=== PATIENT | male | born 1940 | race Caucasian/White ===

== ENCOUNTER → 2016-08-20 | Outpatient (CLI) | payer MEDICARE, BC ==
[2016-08-20 11:31] LABS: ABSOLUTE BASOPHILS # (AUTO) 0.1 10^3/uL (0.0-0.2); ABSOLUTE EOSINOPHILS # (AUTO) 0.2 10^3/uL (0.0-0.6); ABSOLUTE MONOCYTES (AUTO) 0.8 10^3/uL (0.1-1.4); ABSOLUTE NEUT (AUTO) 7.6 10^3/uL (1.7-8.2); BASOPHILS % (AUTO) 1.2 % (0-2); EOSINOPHILS % (AUTO) 1.9 % (0-6); HEMATOCRIT 43.4 % (37.9-51.0); HEMOGLOBIN 14.1 g/dL (13.5-17.0); HGB HCT DIFFERENCE -1.1; LYMPHOCYTES % (AUTO) 18.4 % (13-45); MEAN CORPUSCULAR HEMOGLOBIN 29.9 pg (27.0-33.4); MEAN CORPUSCULAR HGB CONC 32.4 g/dL (32.0-36.0); MEAN CORPUSCULAR VOLUME 92 fl (80-97); MONOCYTES % (AUTO) 7.8 % (3-13); RED BLOOD COUNT 4.71 10^6/uL (4.35-5.55); RED CELL DISTRIBUTION WIDTH 15.5 % (11.5-14.0); SEGMENTED NEUTROPHILS % (AUTO) 70.7 % (42-78); WHITE BLOOD COUNT 10.7 10^3/uL (4.0-10.5)
[2016-08-20 11:54] LABS: ALANINE AMINOTRANSFERASE 34 U/L (21-72); ALBUMIN 3.7 g/dL (3.5-5.0); ALKALINE PHOSPHATASE 94 U/L (38-126); ANION GAP 12 (5-19); ASPARTATE AMINO TRANSFERASE 20 U/L (17-59); BILIRUBIN,TOTAL 0.7 mg/dL (0.2-1.3); BLOOD UREA NITROGEN 14 mg/dL (7-20); CALCIUM 9.3 mg/dL (8.4-10.2); CARBON DIOXIDE 23 mmol/L (22-30); CHLORIDE 108 mmol/L (98-107); CHOLESTEROL 173.02 mg/dL (0-200); CREATININE RESULT 0.96 mg/dL (0.52-1.25); Direct HDL 43 mg/dL (>40); GLUCOSE 86 mg/dL (75-110); POTASSIUM 4.5 mmol/L (3.6-5.0); SODIUM 142.7 mmol/L (137-145); TOTAL PROTEIN 7.2 g/dL (6.3-8.2); TRIGLYCERIDES 187 mg/dL (<150)
[2016-08-20 12:05] LABS: DIRECT LDL 105 mg/dL (<100)
[2016-08-20 12:26] LABS: VLDL CHOLESTEROL 37.4 mg/dL (10-31)
== END ==
LOC: RAD 10:40
DX: Z12.5 Encounter for screening for malignant neoplasm of prostate (principal); I10 Essential (primary) hypertension; E78.5 Hyperlipidemia, unspecified; E66.01 Morbid (severe) obesity due to excess calories; J44.9 Chronic obstructive pulmonary disease, unspecified; K21.9 Gastro-esophageal reflux disease without esophagitis; J45.40 Moderate persistent asthma, uncomplicated; Z79.899 Other long term (current) drug therapy; R06.02 Shortness of breath
CPT/HCPCS: 36415; 84443; 85025; 80053; 83036; 80061; 71020; G0103

== ENCOUNTER → 2016-10-13 | Outpatient (CLI) | payer MEDICARE ==
[2016-10-13 08:00] LABS: ABSOLUTE BASOPHILS # (AUTO) 0.1 10^3/uL (0.0-0.2); ABSOLUTE EOSINOPHILS # (AUTO) 0.3 10^3/uL (0.0-0.6); ABSOLUTE MONOCYTES (AUTO) 0.8 10^3/uL (0.1-1.4); ABSOLUTE NEUT (AUTO) 7.1 10^3/uL (1.7-8.2); BASOPHILS % (AUTO) 0.7 % (0-2); EOSINOPHILS % (AUTO) 3.3 % (0-6); HEMATOCRIT 39.9 % (37.9-51.0); HEMOGLOBIN 13.3 g/dL (13.5-17.0); LYMPHOCYTES % (AUTO) 19.5 % (13-45); MEAN CORPUSCULAR HEMOGLOBIN 30.5 pg (27.0-33.4); MEAN CORPUSCULAR HGB CONC 33.5 g/dL (32.0-36.0); MEAN CORPUSCULAR VOLUME 91 fl (80-97); MONOCYTES % (AUTO) 7.3 % (3-13); RED BLOOD COUNT 4.38 10^6/uL (4.35-5.55); RED CELL DISTRIBUTION WIDTH 15.8 % (11.5-14.0); SEGMENTED NEUTROPHILS % (AUTO) 69.2 % (42-78); WHITE BLOOD COUNT 10.3 10^3/uL (4.0-10.5)
== END ==
LOC: LAB 07:41
DX: K64.9 Unspecified hemorrhoids (principal)
CPT/HCPCS: 36415; 85025

== ENCOUNTER → 2016-10-22 | Outpatient (CLI) | payer MEDICARE | LOC: LAB 07:30 | DX: R71.0 Precipitous drop in hematocrit (principal) | CPT/HCPCS: 36415; 82607; 82728; 82746; 83540; 83550; 85045 ==

== ENCOUNTER → 2017-10-17 | Outpatient (CLI) | payer MEDICARE, BC ==
[2017-10-17 08:39] LABS: ABSOLUTE BASOPHILS # (AUTO) 0.1 10^3/uL (0.0-0.2); ABSOLUTE EOSINOPHILS # (AUTO) 0.2 10^3/uL (0.0-0.6); ABSOLUTE LYMPHOCYTES (AUTO) 1.7 10^3/uL (0.5-4.7); ABSOLUTE MONOCYTES (AUTO) 0.9 10^3/uL (0.1-1.4); ABSOLUTE NEUT (AUTO) 7.3 10^3/uL (1.7-8.2); BASOPHILS % (AUTO) 1.2 % (0-2); EOSINOPHILS % (AUTO) 2.4 % (0-6); HEMATOCRIT 31.9 % (37.9-51.0); LYMPHOCYTES % (AUTO) 16.5 % (13-45); MEAN CORPUSCULAR HEMOGLOBIN 24.4 pg (27.0-33.4); MEAN CORPUSCULAR HGB CONC 31.4 g/dL (32.0-36.0); MEAN CORPUSCULAR VOLUME 78 fl (80-97); MONOCYTES % (AUTO) 8.4 % (3-13); PLATELET COUNT 336 10^3/uL (150-450); RED BLOOD COUNT 4.09 10^6/uL (4.35-5.55); RED CELL DISTRIBUTION WIDTH 18.1 % (11.5-14.0); SEGMENTED NEUTROPHILS % (AUTO) 71.5 % (42-78); TOTAL CELLS COUNTED % (AUTO) 100 %; WHITE BLOOD COUNT 10.2 10^3/uL (4.0-10.5)
[2017-10-17 09:00] LABS: ALANINE AMINOTRANSFERASE 25 U/L (21-72); ALBUMIN 3.8 g/dL (3.5-5.0); ALKALINE PHOSPHATASE 99 U/L (38-126); ANION GAP 8 (5-19); ASPARTATE AMINO TRANSFERASE 20 U/L (17-59); BILIRUBIN,DIRECT 0.2 mg/dL (0.0-0.4); BILIRUBIN,TOTAL 0.6 mg/dL (0.2-1.3); BLOOD UREA NITROGEN 11 mg/dL (7-20); CALCIUM 9.2 mg/dL (8.4-10.2); CARBON DIOXIDE 29 mmol/L (22-30); CHLORIDE 105 mmol/L (98-107); CHOLESTEROL 121.43 mg/dL (0-200); GLUCOSE 107 mg/dL (75-110); POTASSIUM 4.9 mmol/L (3.6-5.0); SODIUM 142.2 mmol/L (137-145); TOTAL PROTEIN 6.6 g/dL (6.3-8.2); TRIGLYCERIDES 103 mg/dL (<150)
[2017-10-17 09:11] LABS: DIRECT LDL 63 mg/dL (<100)
--- NOTE | 2017-10-17 10:24 | RADIOLOGY REPORT (SQ) ---
EXAM DESCRIPTION: CHEST PA/LATERAL COMPLETED DATE/TIME: 10/17/2017 8:12 am REASON FOR STUDY: COPD,COUGH COMPARISON: January 2017 EXAM PARAMETERS: NUMBER OF VIEWS: two views TECHNIQUE: Digital Frontal and Lateral radiographic views of the chest acquired. RADIATION DOSE: NA LIMITATIONS: none FINDINGS: LUNGS AND PLEURA: No opacities, masses or pneumothorax. No pleural effusion. MEDIASTINUM AND HILAR STRUCTURES: No masses or contour abnormalities. HEART AND VASCULAR STRUCTURES: Heart normal size. No evidence for failure. BONES: No acute findings. HARDWARE: None in the chest. OTHER: No other significant finding. IMPRESSION: NO SIGNIFICANT RADIOGRAPHIC FINDING IN THE CHEST. TECHNICAL DOCUMENTATION: JOB ID: [id number] [employer]- All Rights Reserved Reading location - IP/workstation name: [email or web address]
[2017-10-18 11:37] LABS: ABSOLUTE RETICS # 0.097 10^6/uL (0.028-0.122); RETICULOCYTE COUNT (AUTO) 2.35 % (0.66-2.85)
[2017-10-18 12:16] LABS: IRON(TIBC) 18.8 ug/dL (49-181)
[2017-10-18 12:52] LABS: FERRITIN 6.72 ng/mL (17.9-464.0)
[2017-10-18 13:26] LABS: C-PEPTIDE 6.1 ng/mL (1.1-4.4); INSULIN 26.7 uIU/mL (2.6-24.9)
== END ==
LOC: OD 07:38
PROVIDERS: ATTEND Family Medicine Geriatric Medicine
DX: I10 Essential (primary) hypertension (principal); R73.9 Hyperglycemia, unspecified; E78.5 Hyperlipidemia, unspecified; J44.9 Chronic obstructive pulmonary disease, unspecified; R35.1 Nocturia; R05 Cough; D51.9 Vitamin B12 deficiency anemia, unspecified
CPT/HCPCS: 36415; 71046; 80053; 80061; 82728; 83036; 83525; 83540; 83550; 84153; 84443; 84681; 85025; 85045

== ENCOUNTER 2017-10-19 01:42 | Emergency (ER) | payer MEDICARE, BC ==
[2017-10-19 02:55] LABS: HEMATOCRIT 32.9 % (37.9-51.0); HEMOGLOBIN 10.1 g/dL (13.5-17.0); MEAN CORPUSCULAR HEMOGLOBIN 23.6 pg (27.0-33.4); MEAN CORPUSCULAR HGB CONC 30.6 g/dL (32.0-36.0); MEAN CORPUSCULAR VOLUME 77 fl (80-97); RED BLOOD COUNT 4.26 10^6/uL (4.35-5.55); RED CELL DISTRIBUTION WIDTH 18.5 % (11.5-14.0); WHITE BLOOD COUNT 18.7 10^3/uL (4.0-10.5)
[2017-10-19 03:06] LABS: ALANINE AMINOTRANSFERASE 36 U/L (21-72); ALBUMIN 4.1 g/dL (3.5-5.0); ALKALINE PHOSPHATASE 117 U/L (38-126); ANION GAP 12 (5-19); ASPARTATE AMINO TRANSFERASE 20 U/L (17-59); BILIRUBIN,DIRECT 0.1 mg/dL (0.0-0.4); BILIRUBIN,TOTAL 0.6 mg/dL (0.2-1.3); BLOOD UREA NITROGEN 17 mg/dL (7-20); CALCIUM 9.2 mg/dL (8.4-10.2); CARBON DIOXIDE 23 mmol/L (22-30); CHLORIDE 107 mmol/L (98-107); GLUCOSE 155 mg/dL (75-110); LIPASE 88.7 U/L (23-300); POTASSIUM 4.7 mmol/L (3.6-5.0); SODIUM 141.9 mmol/L (137-145); TOTAL PROTEIN 6.9 g/dL (6.3-8.2)
[2017-10-19 03:16] LABS: ABSOLUTE LYMPHOCYTES# (MANUAL) 1.3 10^3/uL (0.5-4.7); ABSOLUTE MONOCYTES # (MANUAL) 0.2 10^3/uL (0.1-1.4); ABSOLUTE NEUTROPHILS# (MANUAL) 17.2 10^3/uL (1.7-8.2); BASOPHILS % (MANUAL) 0 % (0-2); EOSINOPHILS % (MANUAL) 0 % (0-6); LYMPHOCYTES % (MANUAL) 7 % (13-45); MONOCYTES % (MANUAL) 1 % (3-13); SEGMENTED NEUTROPHILS % (MAN) 92 % (42-78); TOTAL CELLS COUNTED 100
[2017-10-19 03:18] LABS: ANISOCYTOSIS 2+; HYPOCHROMASIA 1+; OVALOCYTES 1+; PLATELET CLUMPS PRESENT; PLATELET COMMENT ADEQUATE; PLATELET GIANT PRESENT; POIKILOCYTOSIS 1+; POLYCHROMASIA 1+; TOXIC GRANULATION 1+
[2017-10-19 03:19] LABS: PLATELET COUNT 343 10^3/uL (150-450)
[2017-10-19] MEDS ORDERED: ONDANSETRON HCL INJ/PF 4 MG/2 ML SDV IV ONE (05:07)
[2017-10-19] MEDS ORDERED: NORMAL SALINE 1000 ML 1,000 ML IV ONE (05:07)
--- NOTE | 2017-10-19 05:09 | ER Document Report ---
ED GI/ - General Chief Complaint: Abdominal Pain Stated Complaint: ABDOMINAL PAIN Time Seen by Provider: 10/19/17 04:57 Notes: Patient is a 76-year-old male that comes emergency department for chief complaint of abdominal pain that started earlier today. Patient states he has had dry heaving, pain is in the mid to right lower abdomen. He denies fever, he had a slightly hard bowel movement earlier today but he states this is normal for him. He states he intermittently has some reddish stools but he has hemorrhoids and today he has nothing worse than usual. He denies fever, flank pain, chest pain, difficulty breathing. Past medical history of cholecystectomy , BPH, hypertension, GERD, morbid obesity. TRAVEL OUTSIDE OF THE [place] IN LAST 30 DAYS: No - Related Data Allergies/Adverse Reactions: acetaminophen [From Vicodin] Allergy (Verified 10/19/17 01:53) ampicillin Allergy (Verified 10/19/17 01:53) codeine Allergy (Verified 10/19/17 01:53) hydrocodone [From Vicodin] Allergy (Verified 10/19/17 01:53) morphine Allergy (Verified 10/19/17 01:53) Past Medical History - General Information source: Patient - Social History Smoking Status: Never Smoker Frequency of alcohol use: None Drug Abuse: None Lives with: Family Family History: Reviewed & Not Pertinent - Past Medical History Cardiac Medical History: Reports: Hx Hypercholesterolemia, Hx Hypertension Pulmonary Medical History: Reports: Hx COPD Renal/ Medical History: Reports: Hx Kidney Stones GI Medical History: Reports: Hx Gastroesophageal Reflux Disease Musculoskeltal Medical History: Reports Hx Arthritis Past Surgical History: Reports: Hx Orthopedic Surgery Review of Systems - Review of Systems Constitutional: No symptoms reported EENT: No symptoms reported Cardiovascular: No symptoms reported Respiratory: No symptoms reported Gastrointestinal: See HPI Genitourinary: No symptoms reported Male Genitourinary: No symptoms reported Musculoskeletal: No symptoms reported Skin: No symptoms reported Hematologic/Lymphatic: No symptoms reported Neurological/Psychological: No symptoms reported Physical Exam - Vital signs Vitals: Temp Pulse Resp BP Pulse Ox 98.4 F 91 20 154/88 H 91 L 10/19/17 02:21 10/19/17 02:21 10/19/17 02:21 10/19/17 02:21 10/19/17 02:21 Interpretation: Normal - General General appearance: Appears well In distress: None - Patient well-appearing on my exam - HEENT Head: Normocephalic, Atraumatic Eyes: Normal Pupils: PERRL - Respiratory Respiratory status: No respiratory distress Chest status: Nontender Breath sounds: Normal Chest palpation: Normal - Cardiovascular Rhythm: Regular Heart sounds: Normal auscultation Murmur: No - Abdominal Inspection: Normal Distension: Other - Mild questionable distention, not rigid Bowel sounds: Normal Tenderness: Tender - There is some generalized tenderness in the right mid to lower abdomen, no guarding, nontender abdomen otherwise Organomegaly: No organomegaly - Back Back: Normal, Nontender. No: Tender, CVA tenderness - Extremities General upper extremity: Normal inspection, Nontender, Normal color, Normal ROM , Normal temperature General lower extremity: Normal inspection, Nontender, Normal color, Normal ROM , Normal temperature, Normal weight bearing. No: Azra's sign - Neurological Neuro grossly intact: Yes Cognition: Normal Orientation: AAOx4 Cushman Coma Scale Eye Opening: Spontaneous Cushman Coma Scale Verbal: Oriented [place]ushman Coma Scale Motor: Obeys Commands Herbie Coma Scale Total: 15 Speech: Normal Motor strength normal: LUE, RUE, LLE, RLE Sensory: Normal - Psychological Associated symptoms: Normal affect, Normal mood - Skin Skin Temperature: Warm Skin Moisture: Dry Skin Color: Normal Course - Re-evaluation Re-evalutation: Patient with right lower abdominal tenderness on exam, otherwise his exam is unremarkable. His tachycardia from initially when he was vomiting has resolved. He was given IV fluids. He denies any other locations of pain. No fever. Leukocytosis at 18,000 with left shift but no bandemia. Chemistry unremarkable including kidney functioning. CT was performed to rule out intra-abdominal pathology. CT showing right-sided nephrolithiasis, 3 mm, distal ureter. Urine obtained, shows dehydration and hematuria but no infection. On reevaluation patient is doing much better, he is able to take Percocet, he is able to tolerate p.o. fluids. He states he needs a urologist now. Called and spoke with Dr. Dhillon, urology options advisor, patient to perform a close follow-up in the clinic, with return precautions. Discussed this in detail with patient, patient states satisfaction and agreement with plan. - Vital Signs Vital signs: Temp Pulse Resp BP Pulse Ox 98.4 F 91 22 H 154/88 H 93 10/19/17 02:21 10/19/17 02:21 10/19/17 05:00 10/19/17 02:21 10/19/17 05:00 - Laboratory Result Diagrams: 10/19/17 02:45 10/19/17 02:45 Laboratory results interpreted by me: 10/19/17 10/19/17 10/19/17 02:45 02:45 06:30 WBC 18.7 H RBC 4.26 L Hgb 10.1 L Hct 32.9 L MCV 77 L MCH 23.6 L MCHC 30.6 L RDW 18.5 H Seg Neuts % (Manual) 92 H Lymphocytes % (Manual) 7 L Monocytes % (Manual) 1 L Abs Neuts (Manual) 17.2 H Est GFR (Non-Af Amer) 56 L Glucose 155 H Urine Blood MODERATE H Urine Urobilinogen 2.0 H Discharge - Discharge Clinical Impression: Ureterolithiasis Abdominal pain Qualifiers: Abdominal location: lower abdomen, unspecified Qualified Code(s): R10.30 - Lower abdominal pain, unspecified Vomiting Qualifiers: Vomiting type: unspecified Vomiting Intractability: non-intractable Nausea presence: with nausea Qualified Code(s): R11.2 - Nausea with vomiting, unspecified Condition: Stable Disposition: HOME, SELF-CARE Additional Instructions: Your CAT scan shows a 3 mm kidney stone on the right side near your bladder that you are passing. Continue your Flomax, take this at night, take the Percocet for pain if needed, take the Zofran for nausea if needed, take the Colace stool softener to avoid constipation from the pain medication. I spoke with Dr. Dhillon, urology, please call the office after 8 AM, they are expecting to see you in the office for close follow-up. See referral below. Return to the emergency department immediately if you worsen including developing fever, severe pain, uncontrolled vomiting, or any other concerning or worsening symptoms. [facility] [address] [place] [address] Prescriptions: Docusate Sodium [Colace 100 mg Capsule] 100 mg PO ASDIR PRN #30 capsule PRN Reason: Ondansetron [Zofran Odt 4 mg Tablet] 1 - 2 tab PO Q4H PRN #15 tab.rapdis PRN Reason: For Nausea/Vomiting Oxycodone HCl/Acetaminophen [Percocet 5-325 mg Tablet] 1 - 2 tab PO Q4H PRN #15 tablet PRN Reason:
--- NOTE | 2017-10-19 06:12 | RADIOLOGY REPORT (SQ) ---
EXAM DESCRIPTION: CT ABD/PELVIS WITH IV ONLY CLINICAL HISTORY: 76 years Male, mid abd pain, vomiting, leukocytosis COMPARISON: None. TECHNIQUE: 100 mL Isovue-300 IV contrast. Coronal and sagittal reformat. This exam was performed according to our departmental dose-optimization program, which includes automated exposure control, adjustment of the mA and/or kV according to patient size and/or use of iterative reconstruction technique. FINDINGS: 0.3 cm right distal ureteral stone at the S3 level with mild right hydronephrosis/hydroureter with mild perinephric and periureteral fat stranding. Mild left perinephric fat stranding. Likely benign right renal cysts measure up to 1.7 cm each not definitively characterized. Atherosclerosis. Moderate coronary arterial calcification. Small lingular atelectasis or scar. Moderate hepatic steatosis. Cholecystectomy clips. Normal appendix. Small left inguinal fat only hernia. Minimal right inguinal fat only hernia. 2 cm umbilical fat only hernia. 2.3 cm likely benign epidermal cyst of the mid back at the T9 vertebral level. Small nonspecific fluid of the subcutaneous and deep lower back. Inferior thorax, liver, gallbladder, pancreas, spleen, adrenals, renal system, gastrointestinal tract, pelvic organs, lymphatics, vasculature, and musculoskeleton appear otherwise unremarkable. IMPRESSION: 0.3 cm right distal ureteral stone with low-grade obstruction.
[2017-10-19] MEDS ORDERED: OXYCODONE-ACETAMINOPHEN 5-325 MG TABLET PO ONE (06:22)
[2017-10-19 06:48] LABS: APPEARANCE,URINE CLEAR; BILIRUBIN,URINE NEGATIVE (NEGATIVE); COLOR,URINE YELLOW; GLUCOSE, URINE NEGATIVE (NEGATIVE); KETONES,URINE NEGATIVE (NEGATIVE); LEUKOCYTE ESTERASE,URINE NEGATIVE (NEGATIVE); NITRITE,URINE NEGATIVE (NEGATIVE); PROTEIN,URINE NEGATIVE (NEGATIVE); URINE SPECIFIC GRAVITY 1.033
[2017-10-19 08:24] VITALS: BP 137/57
== END 2017-10-19 08:24 | disposition home or self-care (01) ==
LOC: ER 01:42
DX: N20.1 Calculus of ureter (principal); R11.2 Nausea with vomiting, unspecified; R10.30 Lower abdominal pain, unspecified; R10.31 Right lower quadrant pain; I10 Essential (primary) hypertension; J44.9 Chronic obstructive pulmonary disease, unspecified; Z90.49 Acquired absence of other specified parts of digestive tract
CPT/HCPCS: 99284; 96361; 96374; 36415; 83690; 85025; 80053; 81001; 74177; A9270; J2405; J7030

== ENCOUNTER → 2017-11-04 | Outpatient (CLI) | payer MEDICARE, BC ==
--- NOTE | 2017-11-04 09:34 | RADIOLOGY REPORT (SQ) ---
EXAM DESCRIPTION: KUB COMPLETED DATE/TIME: 11/04/2017 8:33 am REASON FOR STUDY: CALCULUS OF URETER N20.1 CALCULUS OF URETER COMPARISON: CT dated 10/19/2017. NUMBER OF VIEWS: One view. TECHNIQUE: AP supine digital radiograph of the abdomen. LIMITATIONS: None. FINDINGS: CALCIFICATIONS: RIGHT KIDNEY: None. RIGHT URETER: 3 mm calcification on the right side of the lower sacrum. LEFT KIDNEY: None. LEFT URETER: No calcifications in the expected location of the ureter. BLADDER: No suspicious calcifications in the pelvis. BOWEL GAS PATTERN AND SOFT TISSUES: Normal bowel gas pattern. No masses or organomegaly. BONES: No acute fracture. No worrisome bone lesions. OTHER: None. IMPRESSION: 3 Mm Calcification On The Right Side Of The Lower Sacrum, Likely Previously Seen Right U reteral Calculus. TECHNICAL DOCUMENTATION: JOB ID: [id number] [employer]- All Rights Reserved Reading location - IP/workstation name: [email or web address]
== END ==
LOC: OD 08:17
PROVIDERS: ATTEND Urology
DX: N20.1 Calculus of ureter (principal)
CPT/HCPCS: 74018

== ENCOUNTER → 2018-09-13 | Outpatient (CLI) | payer MEDICARE, BC ==
[2018-09-13 07:33] LABS: ABSOLUTE BASOPHILS # (AUTO) 0.1 10^3/uL (0.0-0.2); ABSOLUTE EOSINOPHILS # (AUTO) 0.2 10^3/uL (0.0-0.6); ABSOLUTE LYMPHOCYTES (AUTO) 1.3 10^3/uL (0.5-4.7); ABSOLUTE MONOCYTES (AUTO) 0.6 10^3/uL (0.1-1.4); ABSOLUTE NEUT (AUTO) 6.3 10^3/uL (1.7-8.2); BASOPHILS % (AUTO) 1.1 % (0-2); HEMATOCRIT 33.5 % (37.9-51.0); LYMPHOCYTES % (AUTO) 15.2 % (13-45); MEAN CORPUSCULAR HEMOGLOBIN 30.7 pg (27.0-33.4); MEAN CORPUSCULAR HGB CONC 32.7 g/dL (32.0-36.0); MEAN CORPUSCULAR VOLUME 94 fl (80-97); MONOCYTES % (AUTO) 7.3 % (3-13); PLATELET COUNT 343 10^3/uL (150-450); RED BLOOD COUNT 3.57 10^6/uL (4.35-5.55); RED CELL DISTRIBUTION WIDTH 17.8 % (11.5-14.0); SEGMENTED NEUTROPHILS % (AUTO) 74.4 % (42-78); TOTAL CELLS COUNTED % (AUTO) 100 %; WHITE BLOOD COUNT 8.5 10^3/uL (4.0-10.5)
[2018-09-13 07:58] LABS: ALANINE AMINOTRANSFERASE 25 U/L (21-72); ALKALINE PHOSPHATASE 88 U/L (38-126); ANION GAP 10 (5-19); ASPARTATE AMINO TRANSFERASE 21 U/L (17-59); BILIRUBIN,DIRECT 0.2 mg/dL (0.0-0.4); BILIRUBIN,TOTAL 0.8 mg/dL (0.2-1.3); BLOOD UREA NITROGEN 16 mg/dL (7-20); CARBON DIOXIDE 26 mmol/L (22-30); CHLORIDE 108 mmol/L (98-107); CHOLESTEROL 133.91 mg/dL (0-200); GLUCOSE 117 mg/dL (75-110); POTASSIUM 4.5 mmol/L (3.6-5.0); SODIUM 143.6 mmol/L (137-145); TOTAL PROTEIN 6.6 g/dL (6.3-8.2); TRIGLYCERIDES 97 mg/dL (<150); URIC ACID 7.2 mg/dL (3.5-8.5)
[2018-09-13 08:09] LABS: DIRECT LDL 86 mg/dL (<100)
== END ==
LOC: LAB 07:06
PROVIDERS: ATTEND Internal Medicine
DX: I10 Essential (primary) hypertension (principal); E78.5 Hyperlipidemia, unspecified; R35.1 Nocturia; M10.9 Gout, unspecified; D64.9 Anemia, unspecified
CPT/HCPCS: 36415; 80053; 80061; 84153; 84443; 84550; 85025

== ENCOUNTER → 2018-09-13 | Outpatient (CLI) | payer MEDICARE, BC ==
[~2018-09-13] MED LIST: REGADENOSON INJ 0.4 MG/5 ML DISP.SYRIN IV ONE
--- NOTE | 2018-09-13 17:34 | DRAGON STRESS TEST REPORT ---
Intravenous Lexiscan Cardiolite stress test using single photon emmision computerized tomography. Date of procedure 09/13/2018. Ordering Provider: Dr. Barrett Phillips. Patient's status: Out Patient. Indication: Chest pain. Coronary risk factors: Age, hypertension, dyslipidemia, tobacco abuse, and family history of coronary artery disease. Resting EKG: Sinus Rhythm. Right Bundle Branch Block. Stress EKG[ No changes of ischemia. Reason for termination: Protocol. The patient had no chest pain or discomfort, and there were no arrhythmias seen. Conclusions: Normal EKG and hemodynamic response to IV Lexiscan. Nuclear data: At rest the patient was given 15.66 millicuries of technetium 99m sestamibi injected intravenously. As per protocol rest non gated SPECT images were obtained. Subsequently the patient was given intravenous Lexiscan at a dose of 0.4 mg in 5 mL intravenously, followed by flush with normal saline. Subsequently the stress dose of 46.2 millicuries of technetium 99m sestamibi was injected intravenously. As per protocol stress gated images were obtained. Nuclear interpretation: Review of images showed that this is a difficult study with bowel contamination artifact of the inferior wall. In spite of this there is a mild perfusion defect in the stress images involving the inferior wall, which normalizes on the rest images. This area has normal motion contraction and thickening by gated study. Hence this is consistent with Lexiscan induced reversible ischemia. The rest of the segments of the myocardium had normal perfusion at rest, and normal perfusion post stress with IV Lexiscan. All segments of the myocardium had normal motion, contraction, and thickening by gated study. T. I D. ratio was normal at 1.01. There is no transient ischemic dilatation of the left ventricle. Computer read rest, and stress left ventricular ejection fraction were 58 %, and 54 %, respectively. Visually both the stress and rest ejection fractions were normal, and greater than 55%. Conclusion: 1. There is mild scintigraphic evidence of Lexiscan induced myocardial ischemia involving the inferior wall. 2. There is no scintigraphic evidence of myocardial infarction/scar. Recommendations: 1.Aggressive risk factor modification, and treating the underlying co- morbidities. 2. Consider cardiac catheterization, if the patient continues to be symptomatic on good medical therapy for coronary artery disease. [facility]
== END ==
LOC: RAD 07:24
PROVIDERS: ATTEND Internal Medicine
DX: R07.9 Chest pain, unspecified (principal)
CPT/HCPCS: 93017; 78452; A9500; J2785; Q9969

== ENCOUNTER 2018-12-19 08:32 | Day surgery (SDC) | payer MEDICARE, BC ==
[~2018-12-19 08:32] MED LIST changes: +RADIAL COCKTAIL SYRINGE 10 ML IV PRN; -REGADENOSON INJ 0.4 MG/5 ML DISP.SYRIN IV ONE
[2018-12-19] MEDS ORDERED: ASPIRIN 325 MG TABLET ONE (09:08)
[2018-12-19] MEDS ORDERED: DIAZEPAM 5 MG TABLET ONE (09:08)
[2018-12-19] MEDS ORDERED: DIPHENHYDRAMINE HCL 25 MG CAPSULE ONE (09:08)
[2018-12-19] MEDS ORDERED: HEPARIN SODIUM,PORCINE/NS/PF 2,000 UNIT/1,000 ML RTUINJ IV ONE (09:20)
[2018-12-19] MEDS ORDERED: LIDOCAINE 1% INJ-PF (10 MG/ML) 30 ML SDV ONE (09:20)
[2018-12-19] MEDS ORDERED: FENTANYL CITRATE INJ/PF 100 MCG/2 ML AMPUL ONE ×2 (09:26→10:38)
[2018-12-19] MEDS ORDERED: MIDAZOLAM HCL INJ 5 MG/1 ML VIAL ONE (09:26)
[2018-12-19] MEDS ORDERED: HEPARIN SOD (PORCINE) 1,000 UNIT/ML 10 ML VIAL ONE (09:26)
[2018-12-19] MEDS ORDERED: BIVALIRUDIN INJ 250 MG VIAL IV ONE (10:19)
[2018-12-19] MEDS ORDERED: CLOPIDOGREL BISULFATE 300 MG TABLET ONE (10:52)
--- NOTE | 2018-12-19 11:09 | Operative Report ---
Operative Report DATE OF SURGERY: 12/19/18 PREOPERATIVE DIAGNOSIS: Abnormal stress test inferior wall, angina pectoris POSTOPERATIVE DIAGNOSIS: Coronary artery disease, anomalous circumflex coronary, stent implantation ELISA RCA OPERATION: Left heart catheterization coronary angiography left ventriculography, drug-eluting stent implantation [place] RCA SURGEON: MARICRUZ QUARLES ANESTHESIA: Moderate Sedation COMPLICATIONS: None PROCEDURE: After informed consent was obtained the patient was brought to the cardiac catheterization lab and the right wrist was prepared in usual sterile and draped manner. Hemodynamic access was gained using micropuncture technique and the patient was anticoagulated with heparin. An intra-arterial cocktail of verapamil and lidocaine was administered. Selective coronary angiography was performed with a [place] catheter. This was exchanged with pigtail catheter and left ventriculography was performed in standard ONTIVEROS projection. The patient left the Cardiac Catheterization Lab in stable condition, with intact distal pulses and no chest pain or other complications from the procedure. Conscious sedation was initiated, monitored, and maintained during the procedure with the start time of 957 and a completion time of 1047 for a total procedure time of 50 minutes. A total of 2.5 milligrams of Versed and 125 milligrams and fentanyl were used for conscious sedation. HEMODYNAMIC DATA: Aortic pressure to beginning the case is 123/63 post ventriculography LV pressure is 151/17 aortic pressure on pullback is 159/71 there is no evidence of a gradient across the aortic valve CORONARY ANATOMY: [Left main supplies only the LAD and a diagonal branch the LAD is diffusely diseased and small caliber but reaches the apex there is a pr oximal 60 to 70% stenosis. The circumflex does not arise from the left main or circumflex coronary.] VENTRICULOGRAPHY: Ventriculography is performed in the ONTIVEROS projection and demonstrates preserved regional wall motion normal left ventricular function the ascending aorta is grossly normal in size mitral regurgitation is not visualized . CORONARY ANGIOGRAPHY: [] LEFT MAIN: [Gives rise only to the LAD this is normal the proximal LAD has a 60 to 70% stenosis] CIRCUMFLEX CORONARY: [The circumflex is anomalous and arises from right coronary cusp there is a 30% stenosis in the proximal ostial portion of the circumflex the ongoing circumflex is patent and does appear to give left to left collaterals to high diagonal branch] RIGHT CORONARY ARTERY: [The right coronary artery is dominant supplies a large PDA and distal right coronary artery the proximal RCA is disrupted and has an ulcerated 75 to 80% stenosis proximally] Coronary intervention: The patient was anticoagulated with Angiomax a JR4 was advanced into the ostium of the right coronary artery and a 0.014 intuition guidewire was advanced across the stenosis primary stent implantation was performed with a 2 seven 5 x 15 Medtronic Eleuterio drug-eluting stent this was postdilated to 3.0 mm resulting in a 0% residual excellent stent apposition and no compromise of sidebranch or the ostial circumflex guidewire was removed and a ngiography performed in orthogonal projections demonstrating no evidence of applications and the patient was loaded with 600 of Plavix in the Extrusion Die Coordinator IMPRESSION: 1. Preserved left ventricular function 2. No evidence of significant valvular heart disease 3. Anomalous circumflex coronary artery 4. Noncritical coronary disease involving the LAD 5. Successful drug-eluting stent in the proximal right coronary artery postdilated to 3.0 mm Recommendation: 1. Dual antiplatelet therapy lifelong 2. Stress testing in the next 6 to 12 months to determine the significance of the stenosis in the LAD 3. Risk factor modification CC Dr. Phillips CC Dr. Silveira
[2018-12-19] MEDS ORDERED: CALCIUM CARBONATE 500 MG TAB.CHEW PO ONE (12:30)
[2018-12-19] MEDS ORDERED: LISINOPRIL 10 MG TABLET PO ONE (13:30)
[2018-12-19 19:31] VITALS: BP 153/66
[2018-12-20] MEDS ORDERED: ASPIRIN 325 MG TABLET PO PRN (05:00)
[2018-12-20] MEDS ORDERED: DIAZEPAM 5 MG TABLET PO PRN (05:00)
[2018-12-20] MEDS ORDERED: DIPHENHYDRAMINE HCL 25 MG CAPSULE PO PRN (05:00)
[2018-12-20] MEDS ORDERED: NORMAL SALINE 1000 ML 1,000 ML IV PRN (05:00)
== END 2018-12-19 14:20 | disposition home or self-care (01) ==
LOC: CCL 08:32
PROVIDERS: ATTEND Internal Medicine Cardiovascular Disease
DX: I10 Essential (primary) hypertension (principal); E78.5 Hyperlipidemia, unspecified; I25.10 Atherosclerotic heart disease of native coronary artery without angina pectoris; J44.9 Chronic obstructive pulmonary disease, unspecified; G47.33 Obstructive sleep apnea (adult) (pediatric); Z88.0 Allergy status to penicillin; Z88.5 Allergy status to narcotic agent
CPT/HCPCS: 93458; 92928; C1887; C1874; A9270 ×5; J3010; J1644 ×2; J3490 ×4; J2250; J0583

== ENCOUNTER → 2019-08-17 | Outpatient (CLI) | payer MEDICARE, BC ==
[2019-08-17 09:42] LABS: ABSOLUTE BASOPHILS # (AUTO) 0.1 10^3/uL (0.0-0.2); ABSOLUTE EOSINOPHILS # (AUTO) 0.3 10^3/uL (0.0-0.6); ABSOLUTE LYMPHOCYTES (AUTO) 1.1 10^3/uL (0.5-4.7); ABSOLUTE MONOCYTES (AUTO) 0.6 10^3/uL (0.1-1.4); ABSOLUTE NEUT (AUTO) 6.5 10^3/uL (1.7-8.2); BASOPHILS % (AUTO) 0.8 % (0-2); HEMATOCRIT 30.8 % (37.9-51.0); HEMOGLOBIN 9.7 g/dL (13.5-17.0); LYMPHOCYTES % (AUTO) 12.5 % (13-45); MEAN CORPUSCULAR HEMOGLOBIN 29.9 pg (27.0-33.4); MEAN CORPUSCULAR HGB CONC 31.5 g/dL (32.0-36.0); MEAN CORPUSCULAR VOLUME 95 fl (80-97); MONOCYTES % (AUTO) 7.2 % (3-13); PLATELET COUNT 388 10^3/uL (150-450); RED BLOOD COUNT 3.24 10^6/uL (4.35-5.55); RED CELL DISTRIBUTION WIDTH 17.5 % (11.5-14.0); SEGMENTED NEUTROPHILS % (AUTO) 76.5 % (42-78); TOTAL CELLS COUNTED % (AUTO) 100 %; WHITE BLOOD COUNT 8.5 10^3/uL (4.0-10.5)
[2019-08-17 09:54] LABS: ALBUMIN 3.7 g/dL (3.5-5.0); ALKALINE PHOSPHATASE 86 U/L (38-126); ANION GAP 10 (5-19); ASPARTATE AMINO TRANSFERASE 19 U/L (17-59); BILIRUBIN,TOTAL 0.7 mg/dL (0.2-1.3); BLOOD UREA NITROGEN 14 mg/dL (7-20); CALCIUM 8.8 mg/dL (8.4-10.2); CARBON DIOXIDE 25 mmol/L (22-30); CHLORIDE 107 mmol/L (98-107); CHOLESTEROL 121.93 mg/dL (0-200); GLUCOSE 119 mg/dL (75-110); POTASSIUM 4.7 mmol/L (3.6-5.0); TOTAL PROTEIN 6.4 g/dL (6.3-8.2); TRIGLYCERIDES 107 mg/dL (<150); URIC ACID 7.7 mg/dL (3.5-8.5)
[2019-08-17 10:05] LABS: DIRECT LDL 88 mg/dL (<100)
== END ==
LOC: LAB 09:00
PROVIDERS: ATTEND Internal Medicine
DX: I25.10 Atherosclerotic heart disease of native coronary artery without angina pectoris (principal); R60.9 Edema, unspecified; M10.9 Gout, unspecified; I10 Essential (primary) hypertension; R73.9 Hyperglycemia, unspecified; R53.83 Other fatigue
CPT/HCPCS: 36415; 80053; 80061; 83036; 83735; 84443; 84550; 85025